=== PATIENT | female | born 1940 ===

== ENCOUNTER 2017-12-20 12:11 | Inpatient (IN) | payer MEDICARE, OTHER ==
[2017-12-20] MEDS: hydrALAzine 20 MG INJ IV ×2 (13:00→21:03)
[2017-12-20 13:19] LABS: ADD MAN DIFF? NO
[2017-12-20 13:22] LABS: WHITE BLOOD COUNT 10.1 10^3/ul (4.8-10.8)
[2017-12-20 13:22] LABS: BASOPHILS % 0.2 % (0.0-2.0); EOSINOPHILS # 0.2 10^3/ul (0.0-0.5); EOSINOPHILS % 1.8 % (0.0-7.0); HEMATOCRIT 44.5 % (37.0-47.0); HEMOGLOBIN 14.5 g/dl (12.0-16.0); LYMPHOCYTES # 3.4 10^3/ul (0.8-2.9); LYMPHOCYTES % 33.2 % (15.0-51.0); MEAN CORPUSCULAR HEMOGLOBIN 28.9 pg (29.0-33.0); MEAN CORPUSCULAR HGB CONC 32.6 g/dl (32.0-37.0); MEAN CORPUSCULAR VOLUME 88.8 fl (82.0-101.0); MONOCYTE # 0.5 10^3/ul (0.3-0.9); NEUTROPHILS % 59.5 % (39.0-77.0); PLATELET COUNT 191 10^3/UL (140-415); RED BLOOD COUNT 5.01 10^6/ul (4.20-5.40); RED CELL DISTRIBUTION WIDTH 14.7 % (11.5-14.5)
[2017-12-20 13:43] LABS: ANION GAP 15 (8-16); BLOOD UREA NITROGEN 18 mg/dl (7-20); CARBON DIOXIDE 31 mmol/L (21-31); CHLORIDE 102 mmol/L (97-110); CREATININE 1.18 mg/dl (0.44-1.00); GLUCOSE 113 mg/dl (70-220); POTASSIUM 3.9 mmol/L (3.5-5.1); SODIUM 144 mmol/L (135-144)
[2017-12-20 13:53] LABS: B-TYPE NATRIURETIC PEPTIDE 276 PG/ML (0-450)
[2017-12-20 13:54] LABS: TROPONIN-I < 0.012 ng/ml (0.00-0.12)
[2017-12-20] MEDS ORDERED: ONDANSETRON 4 MG INJ IV (15:00)
[2017-12-20] MEDS ORDERED: ACETAMINOPHEN 325 MG TAB PO (15:00)
[2017-12-20] MEDS ORDERED: NACL 0.9% 3 ML SYG IV (16:00)
[2017-12-20 19:28] LABS: CREATINE KINASE 98 IU/L (23-200)
[2017-12-20 19:40] LABS: CK INDEX 1.4; CK-MB 1.35 ng/ml (0.0-2.4)
[2017-12-20 19:43] LABS: TROPONIN-I < 0.012 ng/ml (0.00-0.12)
[2017-12-21 01:54] LABS: CREATINE KINASE 112 IU/L (23-200)
[2017-12-21 02:02] LABS: CK INDEX 1.1; CK-MB 1.25 ng/ml (0.0-2.4); TROPONIN-I < 0.012 ng/ml (0.00-0.12)
[2017-12-21] MEDS ORDERED: ATROPINE 1 MG/10 ML SYRINGE (11:01)
[2017-12-21 15:34] LABS: ADD MAN DIFF? NO
[2017-12-21 15:41] LABS: WHITE BLOOD COUNT 10.3 10^3/ul (4.8-10.8)
[2017-12-21 15:41] LABS: BASOPHILS % 0.2 % (0.0-2.0); EOSINOPHILS # 0.2 10^3/ul (0.0-0.5); EOSINOPHILS % 1.6 % (0.0-7.0); HEMATOCRIT 38.9 % (37.0-47.0); HEMOGLOBIN 12.8 g/dl (12.0-16.0); LYMPHOCYTES # 3.5 10^3/ul (0.8-2.9); LYMPHOCYTES % 34.3 % (15.0-51.0); MEAN CORPUSCULAR HEMOGLOBIN 28.8 pg (29.0-33.0); MEAN CORPUSCULAR HGB CONC 32.9 g/dl (32.0-37.0); MEAN CORPUSCULAR VOLUME 87.6 fl (82.0-101.0); MEAN PLATELET VOLUME 12.4 fl (7.4-10.4); MONOCYTE # 0.6 10^3/ul (0.3-0.9); MONOCYTES % 5.9 % (0.0-11.0); NEUTROPHIL # 5.9 10^3/ul (1.6-7.5); NEUTROPHILS % 57.7 % (39.0-77.0); PLATELET COUNT 179 10^3/UL (140-415); RED BLOOD COUNT 4.44 10^6/ul (4.20-5.40); RED CELL DISTRIBUTION WIDTH 14.6 % (11.5-14.5)
[2017-12-21 15:50] LABS: HEMOGLOBIN A1C 6.6 % (0-5.9)
[2017-12-21 16:02] LABS: ALANINE AMINOTRANSFERASE 32 IU/L (13-69); ALBUMIN 3.4 g/dl (3.3-4.9); ALBUMIN/GLOBULIN RATIO 0.97; ALKALINE PHOSPHATASE 121 IU/L (42-121); ANION GAP 13 (8-16); ASPARTATE AMINO TRANSFERASE 32 IU/L (15-46); BILIRUBIN,INDIRECT 0.3 mg/dl (0-1.1); BILIRUBIN,TOTAL 0.3 mg/dl (0.2-1.3); BLOOD UREA NITROGEN 19 mg/dl (7-20); CARBON DIOXIDE 25 mmol/L (21-31); CHLORIDE 103 mmol/L (97-110); CREATININE 1.01 mg/dl (0.44-1.00); GLUCOSE 124 mg/dl (70-220); POTASSIUM 3.8 mmol/L (3.5-5.1); SODIUM 137 mmol/L (135-144); TOTAL PROTEIN 6.9 g/dl (6.1-8.1)
[2017-12-21 16:17] LABS: FREE THYROXINE INDEX (Calc) 2.26 ug/ml (0.65-3.89); T3 UPTAKE 27.9 % (23.5-40.5); T4 (THYROXINE) 8.1 ug/dl (5.5-11.0)
[2017-12-21 17:03] LABS: FREE T4 (FREE THYROXINE) 0.94 ng/dl (0.78-2.44)
[2017-12-21] MEDS: LEVOTHYROXINE 50 MCG TAB PO (18:24)
[2017-12-22] MEDS ORDERED: LEVOTHYROXINE 50 MCG TAB PO (06:00)
[2017-12-22] MEDS: LEVOTHYROXINE 50 MCG TAB PO (06:20)
[2017-12-22 06:50] LABS: ADD MAN DIFF? NO
[2017-12-22 06:54] LABS: WHITE BLOOD COUNT 10.5 10^3/ul (4.8-10.8)
[2017-12-22 06:54] LABS: BASOPHILS % 0.2 % (0.0-2.0); EOSINOPHILS # 0.2 10^3/ul (0.0-0.5); EOSINOPHILS % 1.9 % (0.0-7.0); HEMATOCRIT 40.4 % (37.0-47.0); HEMOGLOBIN 13.3 g/dl (12.0-16.0); LYMPHOCYTES # 3.7 10^3/ul (0.8-2.9); LYMPHOCYTES % 35.5 % (15.0-51.0); MEAN CORPUSCULAR HEMOGLOBIN 28.9 pg (29.0-33.0); MEAN CORPUSCULAR HGB CONC 32.9 g/dl (32.0-37.0); MEAN CORPUSCULAR VOLUME 87.8 fl (82.0-101.0); MONOCYTE # 0.6 10^3/ul (0.3-0.9); MONOCYTES % 5.7 % (0.0-11.0); NEUTROPHIL # 5.9 10^3/ul (1.6-7.5); NEUTROPHILS % 56.2 % (39.0-77.0); PLATELET COUNT 156 10^3/UL (140-415); RED CELL DISTRIBUTION WIDTH 14.4 % (11.5-14.5)
[2017-12-22 07:15] LABS: ANION GAP 13 (8-16); BLOOD UREA NITROGEN 20 mg/dl (7-20); CALCIUM 9.2 mg/dl (8.4-10.2); CARBON DIOXIDE 26 mmol/L (21-31); CHLORIDE 107 mmol/L (97-110); CREATININE 1.02 mg/dl (0.44-1.00); GLUCOSE 125 mg/dl (70-220); POTASSIUM 3.8 mmol/L (3.5-5.1); SODIUM 142 mmol/L (135-144)
[2017-12-22 07:25] LABS: INR 0.97
[2017-12-23] MEDS ORDERED: POLYMYXIN/BACITRACIN 1L IRRIG (10:19)
[2017-12-23] MEDS: LEVOTHYROXINE 50 MCG TAB PO (11:53)
[2017-12-23 17:21] LABS: B-TYPE NATRIURETIC PEPTIDE 92 PG/ML (0-450)
[2017-12-23] MEDS: ALBUTEROL/IPRATROPIUM (NEB) 3 ML AMP HHN ×2 (17:33→21:41)
[2017-12-23] MEDS: predniSONE 50 MG TAB PO (18:07)
[2017-12-24] MEDS: ALBUTEROL/IPRATROPIUM (NEB) 3 ML AMP HHN ×6 (00:56→21:27)
[2017-12-24] MEDS: LEVOTHYROXINE 50 MCG TAB PO (06:55)
[2017-12-24] MEDS: predniSONE 20 MG TAB PO (12:54)
[2017-12-25] MEDS: ALBUTEROL/IPRATROPIUM (NEB) 3 ML AMP HHN ×4 (01:30→12:48)
[2017-12-25] MEDS: LEVOTHYROXINE 50 MCG TAB PO (06:54)
[2017-12-25] MEDS: predniSONE 20 MG TAB PO (08:32)
== END 2017-12-25 14:00 | disposition home or self-care (01) | DRG 310 ==
LOC: E/R 12:11 → MS4 14:36
DX: I49.5 Sick sinus syndrome (principal); R00.1 Bradycardia, unspecified; E03.9 Hypothyroidism, unspecified; I10 Essential (primary) hypertension
CPT/HCPCS: 36415; 71045; 80048; 80053; 82550; 82553; 83036; 83880; 84436; 84439; 84443; 84479; 84484; 85025; 85610; 93005; 93306; 94640; 94664; 99285-25